=== PATIENT | male | born 1955 | race Caucasian/White ===

== ENCOUNTER → 2024-02-23 12:14 | Outpatient (REF) | payer MEDICARE, SELFPAY | LOC: RAD 12:14 | PROVIDERS: ATTENDING PHYSICIAN Urology; FAMILY PHYSICIAN Internal Medicine | DX: R82.998 Other abnormal findings in urine (principal); N31.9 Neuromuscular dysfunction of bladder, unspecified | CPT/HCPCS: 76770 ==

== ENCOUNTER 2024-04-08 06:11 | Day surgery (SDC) | payer MEDICARE, SELFPAY ==
[2024-03-29 07:43] VITALS: BMI 25.5
[2024-04-08] VITALS (11 sets, daily range): BP systolic 135–167; BP diastolic 95–139; BMI 25.5
[2024-04-08] MEDS: CYSVIEW KIT 100 MG INTRAVES (07:00)
[2024-04-08] MEDS: NORMOSOL-R 1000 IV (07:13)
[2024-04-08] MEDS: SYRINGE NON-PUMP 50 MG IRRIG ×2 (09:00→09:03)
[2024-04-08] MEDS: SYRINGE NON-PUMP 50 ML IRRIG ×2 (09:00→09:03)
[2024-04-08] MEDS: DILAUDID 0.25 MG IV (09:04)
== END 2024-04-08 10:50 | disposition home or self-care (01) ==
LOC: SDS 06:11
PROVIDERS: ATTENDING PHYSICIAN Specialist; FAMILY PHYSICIAN Internal Medicine
DX: C67.9 Malignant neoplasm of bladder, unspecified (principal); R31.29 Other microscopic hematuria
CPT/HCPCS: 52235; 52204; C9738; 88305; 88307; A9589